=== PATIENT | male | born 1960 | race Caucasian/White ===

== ENCOUNTER 2020-06-09 01:41 | Emergency (ER) | payer SELFPAY ==
[~2020-06-09] VITALS: Ht 185.4 cm; Wt 82.1 kg
[2020-06-09 02:42] VITALS: BP 118/69
== END 2020-06-09 02:46 | disposition home or self-care (01) ==
LOC: ED 02:28
DX: I10 Essential (primary) hypertension (principal); F41.1 Generalized anxiety disorder; F17.210 Nicotine dependence, cigarettes, uncomplicated; Z76.0 Encounter for issue of repeat prescription
CPT/HCPCS: 99281; 99406